=== PATIENT | female | born 1950 | race Caucasian/White ===

== ENCOUNTER 2017-09-14 09:16 | Outpatient (CLI) | payer MEDICARE ==
--- NOTE | 2017-09-14 12:31 | MRI ---
BRAIN MRI WITH AND WITHOUT CONTRAST: History: Dizziness, loss of hearing in the right ear since March. Comparison: None. Technique: Brain and inter auditory canal MRI performed with and without intravenous gadolinium admin istration. Multisequential, multiplanar imaging performed. FINDINGS: No hemorrhage on the axial gradient echo sequence. Calvarium has a normal marrow signal intensity. Midline brain parenchymal structures are unremarkable . Central arterial flow voids are maintained. Absent restricted diffusion. White matter hyperintensity due to small vessel ischemic changes are noted. No pathologic enhancement of the brain parenchyma. There is partial opacification of the right mastoid air cells. There is right greater than left maxil pj sinus disease as well as mucosal thickening in the visualized paranasal sinuses, predominately i n both sphenoid sinuses. There is symmetric signal intensity in the left and right internal auditory canal. There is symmetric signal intensity in the bilateral inner ear structures. There is symmetric signal intensity in the 7 th/8th as well as 5th cranial nerve complexes. There is no abnormal enhancement. IMPRESSION: 1. Sinus disease as above. 2. Partial opacification right mastoid air cells. 3. No abnormal signal intensity in the 7th/8th cranial nerve complexes. POS: [facility]
== END 2017-09-14 09:17 | disposition home or self-care (01) ==
LOC: SCSMRI 09:16
PROVIDERS: ATTEND Specialist
DX: R42 Dizziness and giddiness (principal); J32.9 Chronic sinusitis, unspecified; H74.8X1 Other specified disorders of right middle ear and mastoid
CPT/HCPCS: 70553

== ENCOUNTER 2017-09-19 09:36 | Outpatient (CLI) | payer MEDICARE | END 2017-09-19 09:37 | disposition home or self-care (01) | LOC: CTENTCT 09:36 | PROVIDERS: ATTEND Specialist | DX: J34.2 Deviated nasal septum (principal) | CPT/HCPCS: 70486 ==

== ENCOUNTER 2022-09-26 16:49 | Inpatient (IN) | payer MEDICARE ==
[2022-09-26 17:37] LABS: #Lymphocytes 0.9 thou/uL (1.20-3.40); #Monocytes 0.5 thou/uL (0.11-0.59); #Neutrophils 12.1 thou/uL (1.40-6.50); %Basophils 0.3 % (0.0-1.0); %Eosinophils 0.2 % (0.0-10.0); %Lymphocytes 6.6 % (21.0-51.0); %Monocytes 3.9 % (0.0-10.0); Mean Corpuscular HGB CONC 32.8 g/dL (32.0-36.0); Mean Corpuscular Hemoglobin 35.7 pg (27.0-31.0); Mean Platelet Volume 8.2 fL (7.4-10.4); Platelet Count 207 10x3/uL (130-400); RBC Distribution Width 17.5 % (11.5-14.5); Red Blood Cell (RBC) Count 3.64 mill/uL (4.20-5.40); White Blood Cell (WBC) Count 13.5 10x3/uL (4.8-10.8)
[2022-09-26] MEDS ORDERED: Morphine 4 MG/ML VIAL ONE ×2 (17:43→17:58)
[2022-09-26 17:53] LABS: MDiff Complete? YES; Macrocytosis SLIGHT = 6-15 cells (100X) (0-5/hpf); Ovalocytes SLIGHT = 2-5 cells (100X) (0-1/hpf); Platelet Morphology Comment Appears Adequate; Polychromasia SLIGHT = 2-3 cells (100X) (0-2/hpf)
[2022-09-26 17:57] LABS: ALT (SGPT) 19 U/L (8-55); AST (SGOT) 41 U/L (5-34); Albumin 3.8 g/dL (3.4-4.8); Alkaline Phosphatase 85 U/L (40-110); Anion Gap 12 mmol/L (10-20); BUN (Urea Nitrogen) 12 mg/dL (9.8-20.1); Bilirubin, Total 1.6 mg/dL (0.2-1.2); Calc. Creatinine Clearance 0 mL/min (70-130); Carbon Dioxide 28 mmol/L (23-31); Chloride 104 mmol/L (98-107); Estimated GFR 92; Globulin 2.5 g/dL (2.4-3.5); Glucose 181 mg/dL (83-110); Potassium 4.5 mmol/L (3.5-5.1); Protein, Total 6.3 g/dL (5.8-8.1); Sodium 139 mmol/L (136-145)
[2022-09-26] MEDS ORDERED: Ondansetron PF 4 MG/2 ML Vial ONE (17:58)
[2022-09-26 18:37] LABS: Bilirubin 1+ (Negative); Blood, Urine 2+ (Negative); Clarity Turbid (Clear); Glucose, Urine (Dipstick) 30 mg/dL (Negative); Ketone, Urine 10 mg/dL (Negative); Leukocyte 500 Leu/uL (Negative); Nitrite 2+ (Negative); Protein, Urine (Dipstick) 50 mg/dL (Neg-Trace); Specific Gravity, Urine 1.027 (1.002-1.036); pH, Urine 5.5 (5.0-9.0)
[2022-09-26 18:41] LABS: PTT 28.5 sec (22.9-36.1); Prothrombin Time 13.1 sec (12.0-14.7)
[2022-09-26 18:44] LABS: Bacteria/HPF 4+ HPF (None Seen); Calcium Oxalate Crystals 1+ HPF (None Seen); Squamous Epithelial 0-3 HPF (0-3)
[2022-09-26] MEDS ORDERED: cefTRIAXone\\ROCEPHIN 1 GM VIAL ONE (19:14)
[2022-09-26] MEDS ORDERED: Ondansetron PF 4 MG/2 ML Vial IVP PRN ×2 (20:39→20:46)
[2022-09-26] MEDS ORDERED: Dextrose 50% Abboject 50 ML SYRINGE SLOW IVP PRN (20:39)
[2022-09-26] MEDS ORDERED: Dextrose 5% in Water 1,000 ML IV PRN (20:39)
[2022-09-26] MEDS ORDERED: Ondansetron ODT 4 MG TAB PO PRN (20:39)
[2022-09-26] MEDS ORDERED: Insulin Regular 300 UNITS/3 ML VIAL SC PRN (20:39)
[2022-09-26] MEDS ORDERED: Morphine 4 MG/ML VIAL SLOW IVP PRN ×2 (20:39→20:48)
[2022-09-26] MEDS ORDERED: hydrALAZINE 20 MG/ML VIAL SLOW IVP PRN (20:39)
[2022-09-26] MEDS ORDERED: Famotidine 20 MG TAB PO SCH ×2 (21:00)
[2022-09-26 21:16] LABS: Magnesium 1.9 mg/dL (1.6-2.6); Phosphorus 3.1 mg/dL (2.3-4.7)
[2022-09-26 21:21] VITALS: BMI 39.5
[2022-09-26] MEDS: Gabapentin 100 MG CAP PO SCH (21:53)
[2022-09-26] MEDS: traMADol HCl 50 MG TAB PO SCH (21:54)
[2022-09-26] MEDS: Acetaminophen 325 MG TAB PO SCH (21:54)
[2022-09-26] MEDS: Senokot S 8.6-50 MG TAB PO SCH (21:54)
[2022-09-26] MEDS: Cyclobenzaprine 10 MG TAB PO PRN (21:55)
[2022-09-26] MEDS ORDERED: Cetirizine HCl 10 MG TAB PO PRN (22:48)
[2022-09-26] MEDS ORDERED: Sodium Chloride 0.9% 1,000 ML IV SCH (23:55)
[2022-09-27] MEDS: Ketorolac Tromethamine 30 MG/ML VIAL IVP SCH ×4 (00:50→18:28)
[2022-09-27 03:11] LABS: SARS-CoV-2 NAA Rapid Test Not Detected (NotDetected)
[2022-09-27] MEDS: Acetaminophen 325 MG TAB PO SCH (03:43)
[2022-09-27] MEDS: traMADol HCl 50 MG TAB PO SCH (03:43)
[2022-09-27] MEDS: Gabapentin 100 MG CAP PO SCH (05:33)
[2022-09-27] MEDS ORDERED: Acetaminophen/Codeine 30-300mg Tablet PO PRN (06:27)
[2022-09-27] MEDS ORDERED: Metoprolol Tartrate 25 MG TAB PO SCH (06:30)
[2022-09-27 06:44] LABS: #Basophils 0.1 thou/uL (0.0-0.2); #Lymphocytes 0.8 thou/uL (1.20-3.40); #Monocytes 0.2 thou/uL (0.11-0.59); #Neutrophils 10.4 thou/uL (1.40-6.50); %Basophils 0.6 % (0.0-1.0); %Eosinophils 0.2 % (0.0-10.0); %Lymphocytes 6.9 % (21.0-51.0); %Monocytes 1.7 % (0.0-10.0); %Neutrophils 90.6 % (42.0-75.0); Hemoglobin 12.4 g/dL (12.0-16.0); Mean Corpuscular HGB CONC 32.5 g/dL (32.0-36.0); Mean Corpuscular Hemoglobin 36.1 pg (27.0-31.0); Mean Platelet Volume 8.2 fL (7.4-10.4); Platelet Count 222 10x3/uL (130-400); RBC Distribution Width 17.5 % (11.5-14.5); Red Blood Cell (RBC) Count 3.44 mill/uL (4.20-5.40); White Blood Cell (WBC) Count 11.5 10x3/uL (4.8-10.8)
[2022-09-27 07:19] LABS: Anion Gap 12 mmol/L (10-20); BUN (Urea Nitrogen) 16 mg/dL (9.8-20.1); Calc. Creatinine Clearance 107 mL/min (70-130); Calcium 8.7 mg/dL (7.8-10.44); Carbon Dioxide 26 mmol/L (23-31); Chloride 105 mmol/L (98-107); Estimated GFR 75; Glucose 173 mg/dL (83-110); Magnesium 1.8 mg/dL (1.6-2.6); Potassium 3.9 mmol/L (3.5-5.1); Sodium 139 mmol/L (136-145)
[2022-09-27] MEDS ORDERED: Morphine 4 MG/ML VIAL SLOW IVP PRN (07:49)
[2022-09-27] MEDS ORDERED: traMADol HCl 50 MG TAB PO PRN (07:49)
[2022-09-27] MEDS ORDERED: Magnesium 2 GM/50 ML(in water) 2 GM in Premix Bag 1 BAG IVPB SCH (08:00)
[2022-09-27] MEDS ORDERED: CEFAZOLIN 2 GM in Sodium Chloride 0.9% 100 ML IVPB SCH (08:30)
[2022-09-27] MEDS: Senokot S 8.6-50 MG TAB PO SCH ×2 (08:51→22:23)
[2022-09-27] MEDS: Polyethylene Glycol 3350 17 GM Packet PO SCH (08:51)
[2022-09-27] MEDS: Sertraline 100 MG TAB PO SCH (08:51)
[2022-09-27] MEDS ORDERED: FLU VACC QS2022-23(65YR UP)/PF 240 MCG/0.7 ML SYRINGE IM ONE (09:00)
[2022-09-27] MEDS: Acetaminophen 500 MG TAB PO SCH ×3 (11:22→22:23)
[2022-09-27] MEDS: Potassium Chloride 20 MEQ in Premix Bag 1 BAG IVPB SCH ×2 (12:13→16:17)
[2022-09-27 12:34] LABS: Troponin I 0.141 ng/mL (< 0.028)
[2022-09-27] MEDS: cefTRIAXone\\ROCEPHIN 1 GM in Sodium Chloride 0.9% 100 ML IVPB SCH (18:28)
[2022-09-27 18:44] LABS: Troponin I 0.206 ng/mL (< 0.028)
[2022-09-27] MEDS ORDERED: levETIRAcetam in NS 1,000 MG in Premix Bag 1 BAG IVPB SCH (19:45)
[2022-09-27] MEDS ORDERED: Sodium Bicarb 50 MEQ/50 ML VIAL IVP SCH (19:45)
[2022-09-27] MEDS ORDERED: Sodium Chloride 0.9% 1,000 ML IV SCH (20:00)
[2022-09-27] MEDS: Metoprolol Tartrate 25 MG TAB PO SCH (22:23)
[2022-09-28] MEDS: Ketorolac Tromethamine 30 MG/ML VIAL IVP SCH ×5 (00:58→23:51)
[2022-09-28 01:50] LABS: Troponin I 0.209 ng/mL (< 0.028)
[2022-09-28 05:09] LABS: #Eosinphils 0.2 thou/uL (0.0-0.7); #Lymphocytes 1.4 thou/uL (1.20-3.40); #Monocytes 0.4 thou/uL (0.11-0.59); #Neutrophils 10.2 thou/uL (1.40-6.50); %Basophils 0.2 % (0.0-1.0); %Eosinophils 1.4 % (0.0-10.0); %Lymphocytes 11.7 % (21.0-51.0); %Monocytes 3.3 % (0.0-10.0); %Neutrophils 83.4 % (42.0-75.0); Hemoglobin 9.7 g/dL (12.0-16.0); Mean Corpuscular HGB CONC 32.1 g/dL (32.0-36.0); Mean Platelet Volume 8.6 fL (7.4-10.4); Platelet Count 175 10x3/uL (130-400); RBC Distribution Width 17.5 % (11.5-14.5); White Blood Cell (WBC) Count 12.2 10x3/uL (4.8-10.8)
[2022-09-28] MEDS: Acetaminophen 500 MG TAB PO SCH ×4 (06:02→22:59)
[2022-09-28 06:03] LABS: Anion Gap 10 mmol/L (10-20); BUN (Urea Nitrogen) 23 mg/dL (9.8-20.1); Calc. Creatinine Clearance 94 mL/min (70-130); Calcium 8.4 mg/dL (7.8-10.44); Carbon Dioxide 25 mmol/L (23-31); Chloride 104 mmol/L (98-107); Estimated GFR 64; Glucose 132 mg/dL (83-110); Magnesium 2.4 mg/dL (1.6-2.6); Phosphorus 3.6 mg/dL (2.3-4.7); Potassium 4.9 mmol/L (3.5-5.1); Sodium 134 mmol/L (136-145)
[2022-09-28] MEDS ORDERED: levETIRAcetam in NS 500 MG in Premix Bag 1 BAG IVPB SCH (09:00)
[2022-09-28] MEDS: Metoprolol Tartrate 25 MG TAB PO SCH ×2 (09:43→21:04)
[2022-09-28] MEDS: Polyethylene Glycol 3350 17 GM Packet PO SCH ×2 (09:43→09:50)
[2022-09-28] MEDS: Senokot S 8.6-50 MG TAB PO SCH ×2 (09:43→21:04)
[2022-09-28] MEDS: Sertraline 100 MG TAB PO SCH (09:44)
[2022-09-28] MEDS ORDERED: Rocuronium Bromide 10 MG/ML (10ML VIAL) ONE (12:44)
[2022-09-28] MEDS ORDERED: Dexamethasone 20 MG/5 ML VIAL ONE (12:44)
[2022-09-28] MEDS ORDERED: Ropivacaine 0.5% HCl/PF (150 MG/30 ML VIAL) ONE ×2 (12:44→12:54)
[2022-09-28] MEDS ORDERED: NEOSTIGMINE 3 MG/3 ML SYR 3 MG/3 ML SYRINGE ONE (12:44)
[2022-09-28] MEDS ORDERED: Phenylephrine 10 MG/ML VIAL ONE (12:44)
[2022-09-28] MEDS ORDERED: PROPOFOL 200 MG/20 ML VIAL ONE (12:44)
[2022-09-28] MEDS ORDERED: CEFAZOLIN 2 GM VIAL ONE (12:53)
[2022-09-28] MEDS ORDERED: Sodium Chloride 0.9% 100 ML ONE (12:53)
[2022-09-28] MEDS ORDERED: Midazolam HCl 2 mg/2 ml Vial ONE (12:54)
[2022-09-28] MEDS ORDERED: FENTANYL 50 MCG/ML 1 ML VIAL ONE (12:54)
[2022-09-28] MEDS ORDERED: fentaNYL PF 100 MCG/2 ML SYRINGE ONE (13:19)
[2022-09-28] MEDS ORDERED: Lidocaine 2% 6 ML SYR ONE (13:19)
[2022-09-28] MEDS ORDERED: Promethazine HCl 25 MG/ML VIAL IM PRN (13:58)
[2022-09-28] MEDS ORDERED: Promethazine HCl 25 MG/ML VIAL IVPB PRN (13:58)
[2022-09-28] MEDS ORDERED: Ondansetron HCl/PF 4 MG/2 ML Vial IVP PRN (13:58)
[2022-09-28] MEDS ORDERED: Sodium Chloride 0.9% 500 ML IV SCH (15:30)
[2022-09-28] MEDS ORDERED: hydrALAZINE 20 MG/ML VIAL ONE (16:37)
[2022-09-28] MEDS ORDERED: Promethazine HCl 25 MG/ML VIAL ONE (17:08)
[2022-09-28] MEDS ORDERED: Ketorolac Tromethamine 30 MG/ML VIAL ONE (17:18)
[2022-09-28] MEDS: Ferrous Sulfate 325 MG TAB PO SCH (18:10)
[2022-09-28] MEDS: cefTRIAXone\\ROCEPHIN 1 GM in Sodium Chloride 0.9% 100 ML IVPB SCH (20:59)
[2022-09-28] MEDS: Ascorbic Acid 500 mg Chewable Tablet PO SCH (21:04)
[2022-09-28] MEDS: CEFAZOLIN 2 GM in Sodium Chloride 0.9% 100 ML IVPB SCH (21:52)
[2022-09-28] MEDS: Sodium Chloride 0.9% 1,000 ML IV SCH (23:49)
[2022-09-29] MEDS: Acetaminophen 500 MG TAB PO SCH ×2 (04:56→09:20)
[2022-09-29 05:09] LABS: #Lymphocytes 0.7 thou/uL (1.20-3.40); #Monocytes 0.3 thou/uL (0.11-0.59); #Neutrophils 9.2 thou/uL (1.40-6.50); %Eosinophils 0.2 % (0.0-10.0); %Lymphocytes 6.7 % (21.0-51.0); %Neutrophils 90.2 % (42.0-75.0); Hemoglobin 8.3 g/dL (12.0-16.0); Mean Corpuscular HGB CONC 32.5 g/dL (32.0-36.0); Mean Corpuscular Hemoglobin 36.3 pg (27.0-31.0); Platelet Count 185 10x3/uL (130-400); RBC Distribution Width 17.8 % (11.5-14.5); Red Blood Cell (RBC) Count 2.29 mill/uL (4.20-5.40); White Blood Cell (WBC) Count 10.2 10x3/uL (4.8-10.8)
[2022-09-29 05:29] LABS: Anion Gap 11 mmol/L (10-20); BUN (Urea Nitrogen) 19 mg/dL (9.8-20.1); Calc. Creatinine Clearance 126 mL/min (70-130); Calcium 8.3 mg/dL (7.8-10.44); Carbon Dioxide 25 mmol/L (23-31); Chloride 108 mmol/L (98-107); Estimated GFR 91; Glucose 146 mg/dL (83-110); Magnesium 2.2 mg/dL (1.6-2.6); Phosphorus 2.9 mg/dL (2.3-4.7); Sodium 139 mmol/L (136-145)
[2022-09-29] MEDS: CEFAZOLIN 2 GM in Sodium Chloride 0.9% 100 ML IVPB SCH ×2 (05:41→13:53)
[2022-09-29] MEDS: Ketorolac Tromethamine 30 MG/ML VIAL IVP SCH ×3 (05:41→18:37)
[2022-09-29] MEDS: Polyethylene Glycol 3350 17 GM Packet PO SCH (09:20)
[2022-09-29] MEDS: Ferrous Sulfate 325 MG TAB PO SCH ×2 (09:21→16:40)
[2022-09-29] MEDS: predniSONE 20 MG TAB PO SCH (09:21)
[2022-09-29] MEDS: Senokot S 8.6-50 MG TAB PO SCH ×2 (09:21→21:34)
[2022-09-29] MEDS: Metoprolol Tartrate 25 MG TAB PO SCH ×2 (09:21→21:33)
[2022-09-29] MEDS: Ascorbic Acid 500 mg Chewable Tablet PO SCH ×2 (09:22→21:33)
[2022-09-29] MEDS: Sodium Chloride 0.9% 1,000 ML IV SCH ×2 (09:22→18:38)
[2022-09-29] MEDS: Sertraline 100 MG TAB PO SCH (09:22)
[2022-09-29] MEDS: Acetaminophen/Codeine 30-300mg Tablet PO SCH ×3 (11:10→21:33)
[2022-09-29] MEDS ORDERED: Loratadine 10 MG TAB PO PRN (11:45)
[2022-09-29] MEDS: cloNIDine 0.1 MG TAB PO SCH ×2 (12:30→16:38)
[2022-09-29] MEDS ORDERED: Gabapentin 100 MG CAP PO SCH (15:00)
[2022-09-29] MEDS: Insulin Regular 300 UNITS/3 ML VIAL SC PRN (16:45)
[2022-09-29] MEDS: Dronedarone HCl 400 MG TAB PO SCH (18:37)
[2022-09-29] MEDS ORDERED: Amlodipine 5 MG TAB PO SCH (19:00)
[2022-09-29] MEDS: Pregabalin 50 MG CAP PO SCH (21:33)
[2022-09-30] MEDS: Ketorolac Tromethamine 30 MG/ML VIAL IVP SCH ×3 (01:10→12:28)
[2022-09-30] MEDS: Sodium Chloride 0.9% 1,000 ML IV SCH ×2 (01:11→12:36)
[2022-09-30 05:09] LABS: #Eosinphils 0.1 thou/uL (0.0-0.7); #Lymphocytes 1.6 thou/uL (1.20-3.40); #Monocytes 0.4 thou/uL (0.11-0.59); #Neutrophils 6.9 thou/uL (1.40-6.50); %Basophils 0.3 % (0.0-1.0); %Eosinophils 0.6 % (0.0-10.0); %Lymphocytes 18.2 % (21.0-51.0); %Monocytes 4.2 % (0.0-10.0); %Neutrophils 76.8 % (42.0-75.0); Hemoglobin 7.1 g/dL (12.0-16.0); Mean Corpuscular HGB CONC 33.2 g/dL (32.0-36.0); Mean Corpuscular Hemoglobin 36.8 pg (27.0-31.0); Mean Platelet Volume 7.9 fL (7.4-10.4); Platelet Count 186 10x3/uL (130-400); Red Blood Cell (RBC) Count 1.94 mill/uL (4.20-5.40); White Blood Cell (WBC) Count 8.9 10x3/uL (4.8-10.8)
[2022-09-30 05:28] LABS: Troponin I 0.088 ng/mL (< 0.028)
[2022-09-30] MEDS: Acetaminophen/Codeine 30-300mg Tablet PO SCH ×4 (05:50→21:47)
[2022-09-30 06:02] LABS: Anion Gap 6 mmol/L (10-20); BUN (Urea Nitrogen) 20 mg/dL (9.8-20.1); Calc. Creatinine Clearance 126 mL/min (70-130); Calcium 8.2 mg/dL (7.8-10.44); Carbon Dioxide 28 mmol/L (23-31); Chloride 109 mmol/L (98-107); Estimated GFR 91; Glucose 116 mg/dL (83-110); Magnesium 2.2 mg/dL (1.6-2.6); Phosphorus 2.3 mg/dL (2.3-4.7); Potassium 4.4 mmol/L (3.5-5.1); Sodium 139 mmol/L (136-145)
[2022-09-30] MEDS: Dronedarone HCl 400 MG TAB PO SCH ×3 (12:19→18:20)
[2022-09-30] MEDS: predniSONE 20 MG TAB PO SCH (12:20)
[2022-09-30] MEDS: Sertraline 100 MG TAB PO SCH (12:20)
[2022-09-30] MEDS: Amlodipine 5 MG TAB PO SCH (12:20)
[2022-09-30] MEDS: Ferrous Sulfate 325 MG TAB PO SCH ×2 (12:21→17:45)
[2022-09-30] MEDS: Metoprolol Tartrate 25 MG TAB PO SCH ×2 (12:21→21:46)
[2022-09-30] MEDS: Senokot S 8.6-50 MG TAB PO SCH ×2 (12:22→21:49)
[2022-09-30] MEDS: Polyethylene Glycol 3350 17 GM Packet PO SCH (12:24)
[2022-09-30] MEDS: Ascorbic Acid 500 mg Chewable Tablet PO SCH ×2 (12:24→21:46)
[2022-09-30] MEDS: Pregabalin 50 MG CAP PO SCH ×2 (12:26→21:47)
[2022-09-30] MEDS: Nitrofurantoin Monohyd/M-Cryst 100 MG CAP PO SCH ×2 (12:26→21:47)
[2022-09-30] MEDS: Enoxaparin Sodium 40 MG/0.4 ML SYRINGE SC SCH ×2 (12:52→22:10)
[2022-09-30] MEDS: Famotidine 20 MG TAB PO SCH (21:47)
[2022-10-01 05:09] LABS: #Eosinphils 0.1 thou/uL (0.0-0.7); #Lymphocytes 1.9 thou/uL (1.20-3.40); #Monocytes 0.5 thou/uL (0.11-0.59); #Neutrophils 5.1 thou/uL (1.40-6.50); %Basophils 0.2 % (0.0-1.0); %Eosinophils 1.9 % (0.0-10.0); %Lymphocytes 25.1 % (21.0-51.0); %Monocytes 6.3 % (0.0-10.0); %Neutrophils 66.5 % (42.0-75.0); Hemoglobin 7.7 g/dL (12.0-16.0); Mean Corpuscular HGB CONC 32.5 g/dL (32.0-36.0); Mean Corpuscular Hemoglobin 35.8 pg (27.0-31.0); Mean Platelet Volume 7.6 fL (7.4-10.4); Platelet Count 221 10x3/uL (130-400); RBC Distribution Width 18.4 % (11.5-14.5); Red Blood Cell (RBC) Count 2.15 mill/uL (4.20-5.40); White Blood Cell (WBC) Count 7.7 10x3/uL (4.8-10.8)
[2022-10-01 05:39] LABS: Anion Gap 10 mmol/L (10-20); BUN (Urea Nitrogen) 13 mg/dL (9.8-20.1); Calc. Creatinine Clearance 140 mL/min (70-130); Calcium 8.7 mg/dL (7.8-10.44); Carbon Dioxide 27 mmol/L (23-31); Chloride 107 mmol/L (98-107); Estimated GFR 94; Glucose 93 mg/dL (83-110); Magnesium 1.9 mg/dL (1.6-2.6); Phosphorus 2.9 mg/dL (2.3-4.7); Potassium 4.5 mmol/L (3.5-5.1); Sodium 139 mmol/L (136-145)
[2022-10-01] MEDS: Acetaminophen/Codeine 30-300mg Tablet PO SCH ×4 (05:45→22:52)
[2022-10-01] MEDS: Ferrous Sulfate 325 MG TAB PO SCH ×2 (09:30→17:30)
[2022-10-01] MEDS: Dronedarone HCl 400 MG TAB PO SCH ×2 (09:30→17:30)
[2022-10-01] MEDS: predniSONE 20 MG TAB PO SCH (09:31)
[2022-10-01] MEDS: Amlodipine 5 MG TAB PO SCH (09:32)
[2022-10-01] MEDS: Ascorbic Acid 500 mg Chewable Tablet PO SCH ×2 (09:32→21:40)
[2022-10-01] MEDS: Famotidine 20 MG TAB PO SCH ×2 (09:33→21:40)
[2022-10-01] MEDS: Lisinopril 5 MG TAB PO SCH (09:34)
[2022-10-01] MEDS: Pregabalin 50 MG CAP PO SCH ×2 (09:35→21:40)
[2022-10-01] MEDS: Metoprolol Tartrate 25 MG TAB PO SCH ×2 (09:35→21:39)
[2022-10-01] MEDS: Nitrofurantoin Monohyd/M-Cryst 100 MG CAP PO SCH ×2 (09:35→21:39)
[2022-10-01] MEDS: Sertraline 100 MG TAB PO SCH (09:39)
[2022-10-01] MEDS: Senokot S 8.6-50 MG TAB PO SCH ×2 (09:41→21:39)
[2022-10-01] MEDS: Polyethylene Glycol 3350 17 GM Packet PO SCH (09:41)
[2022-10-01] MEDS: Insulin Regular 300 UNITS/3 ML VIAL SC PRN (17:34)
[2022-10-01] MEDS: Enoxaparin Sodium 40 MG/0.4 ML SYRINGE SC SCH (21:37)
[2022-10-01] MEDS: Cyclobenzaprine 10 MG TAB PO PRN (21:46)
[2022-10-02] MEDS: Acetaminophen/Codeine 30-300mg Tablet PO SCH ×3 (04:47→16:26)
[2022-10-02] MEDS: Ascorbic Acid 500 mg Chewable Tablet PO SCH ×2 (09:31→21:51)
[2022-10-02] MEDS: Ferrous Sulfate 325 MG TAB PO SCH ×2 (09:31→17:30)
[2022-10-02] MEDS: Dronedarone HCl 400 MG TAB PO SCH ×2 (09:31→17:29)
[2022-10-02] MEDS: predniSONE 20 MG TAB PO SCH (09:32)
[2022-10-02] MEDS: Metoprolol Tartrate 25 MG TAB PO SCH ×2 (09:32→21:52)
[2022-10-02] MEDS: Nitrofurantoin Monohyd/M-Cryst 100 MG CAP PO SCH ×2 (09:32→21:53)
[2022-10-02] MEDS: Lisinopril 5 MG TAB PO SCH (09:32)
[2022-10-02] MEDS: Sertraline 100 MG TAB PO SCH (09:33)
[2022-10-02] MEDS: Pregabalin 50 MG CAP PO SCH ×2 (09:33→21:53)
[2022-10-02] MEDS: Famotidine 20 MG TAB PO SCH ×2 (09:33→21:51)
[2022-10-02] MEDS: Amlodipine 5 MG TAB PO SCH (09:33)
[2022-10-02] MEDS: Polyethylene Glycol 3350 17 GM Packet PO SCH (09:49)
[2022-10-02] MEDS: Senokot S 8.6-50 MG TAB PO SCH ×2 (09:49→21:52)
[2022-10-02] MEDS: Insulin Regular 300 UNITS/3 ML VIAL SC PRN (17:30)
[2022-10-02] MEDS: Enoxaparin Sodium 30 MG/0.3 ML SYRINGE SC SCH (21:52)
[2022-10-03] MEDS: Acetaminophen/Codeine 30-300mg Tablet PO SCH ×5 (05:17→21:35)
[2022-10-03] MEDS: Enoxaparin Sodium 30 MG/0.3 ML SYRINGE SC SCH ×2 (09:33→21:35)
[2022-10-03] MEDS: Dronedarone HCl 400 MG TAB PO SCH ×2 (09:34→17:54)
[2022-10-03] MEDS: Ascorbic Acid 500 mg Chewable Tablet PO SCH (09:34)
[2022-10-03] MEDS: Nitrofurantoin Monohyd/M-Cryst 100 MG CAP PO SCH ×2 (09:34→21:41)
[2022-10-03] MEDS: Ferrous Sulfate 325 MG TAB PO SCH (09:34)
[2022-10-03] MEDS: Metoprolol Tartrate 50 MG TAB PO SCH ×2 (09:34→21:37)
[2022-10-03] MEDS: Famotidine 20 MG TAB PO SCH ×2 (09:34→21:35)
[2022-10-03] MEDS: predniSONE 20 MG TAB PO SCH (09:34)
[2022-10-03] MEDS: Amlodipine 5 MG TAB PO SCH (09:35)
[2022-10-03] MEDS: Sertraline 100 MG TAB PO SCH (09:35)
[2022-10-03] MEDS: Lisinopril 5 MG TAB PO SCH (09:35)
[2022-10-03] MEDS: Pregabalin 50 MG CAP PO SCH ×2 (09:35→21:37)
[2022-10-03] MEDS: Polyethylene Glycol 3350 17 GM Packet PO SCH (10:01)
[2022-10-03] MEDS: Senokot S 8.6-50 MG TAB PO SCH ×2 (10:01→21:42)
[2022-10-03] MEDS: Insulin Regular 300 UNITS/3 ML VIAL SC PRN (17:54)
[2022-10-04] MEDS: Acetaminophen/Codeine 30-300mg Tablet PO SCH ×2 (05:04→10:46)
[2022-10-04 07:04] LABS: #Eosinphils 0.1 thou/uL (0.0-0.7); #Lymphocytes 1.7 thou/uL (1.20-3.40); #Monocytes 0.6 thou/uL (0.11-0.59); #Neutrophils 4.3 thou/uL (1.40-6.50); %Basophils 0.2 % (0.0-1.0); %Eosinophils 1.9 % (0.0-10.0); %Lymphocytes 25.7 % (21.0-51.0); %Monocytes 8.8 % (0.0-10.0); %Neutrophils 63.5 % (42.0-75.0); Hemoglobin 9.5 g/dL (12.0-16.0); Mean Corpuscular HGB CONC 31.7 g/dL (32.0-36.0); Mean Corpuscular Hemoglobin 35.3 pg (27.0-31.0); Mean Platelet Volume 7.4 fL (7.4-10.4); Platelet Count 294 10x3/uL (130-400); RBC Distribution Width 17.9 % (11.5-14.5); Red Blood Cell (RBC) Count 2.68 mill/uL (4.20-5.40); White Blood Cell (WBC) Count 6.8 10x3/uL (4.8-10.8)
[2022-10-04] MEDS: Polyethylene Glycol 3350 17 GM Packet PO SCH (10:32)
[2022-10-04] MEDS: Dronedarone HCl 400 MG TAB PO SCH (10:33)
[2022-10-04] MEDS: Nitrofurantoin Monohyd/M-Cryst 100 MG CAP PO SCH (10:34)
[2022-10-04] MEDS: Metoprolol Tartrate 50 MG TAB PO SCH (10:34)
[2022-10-04] MEDS: Sertraline 100 MG TAB PO SCH (10:34)
[2022-10-04] MEDS: Pregabalin 50 MG CAP PO SCH (10:34)
[2022-10-04] MEDS: Senokot S 8.6-50 MG TAB PO SCH (10:35)
[2022-10-04] MEDS: Lisinopril 5 MG TAB PO SCH (10:35)
[2022-10-04] MEDS: Amlodipine 5 MG TAB PO SCH (10:35)
[2022-10-04] MEDS: predniSONE 20 MG TAB PO SCH (10:35)
[2022-10-04] MEDS: Enoxaparin Sodium 30 MG/0.3 ML SYRINGE SC SCH (10:37)
[2022-10-04 11:49] VITALS: BP 134/85; TEMP 98.8
== END 2022-10-04 14:15 | DRG 480 ==
LOC: ERS 16:49 → SURG B 19:52 → 2NO 09-28 01:45 → SJJU 10-01 17:57
PROVIDERS: ADMIT Surgery; ATTEND Surgery
PROC: 0QSB04Z Reposition Right Lower Femur with Internal Fixation Device, Open Approach (ICD-10-PCS; principal; 2022-09-28)
PROC: 0QSJ04Z Reposition Right Fibula with Internal Fixation Device, Open Approach (ICD-10-PCS; 2022-09-28)
PROC: 0QSG04Z Reposition Right Tibia with Internal Fixation Device, Open Approach (ICD-10-PCS; 2022-09-28)
DX: M97.11XA Periprosthetic fracture around internal prosthetic right knee joint, initial encounter (principal); I21.A1 Myocardial infarction type 2; D62 Acute posthemorrhagic anemia; N39.0 Urinary tract infection, site not specified; S82.851A Displaced trimalleolar fracture of right lower leg, initial encounter for closed fracture; I10 Essential (primary) hypertension; K21.9 Gastro-esophageal reflux disease without esophagitis; E11.9 Type 2 diabetes mellitus without complications; F32.A Depression, unspecified; M19.90 Unspecified osteoarthritis, unspecified site; Z96.651 Presence of right artificial knee joint; S82.841A Displaced bimalleolar fracture of right lower leg, initial encounter for closed fracture; G89.11 Acute pain due to trauma; E78.5 Hyperlipidemia, unspecified; N20.0 Calculus of kidney; Z91.048 Other nonmedicinal substance allergy status; Z90.710 Acquired absence of both cervix and uterus; Z98.84 Bariatric surgery status; Z90.49 Acquired absence of other specified parts of digestive tract; B96.20 Unspecified Escherichia coli [E. coli] as the cause of diseases classified elsewhere; I48.0 Paroxysmal atrial fibrillation; Z20.822 Contact with and (suspected) exposure to COVID-19
CPT/HCPCS: 29515; 36415; 36416; 70450; 71045; 80048; 80053; 81001; 81003; 81015; 83735; 83880; 84100; 84484; 85025; 85610; 85730; 87077; 87086; 87186; 87811; 93005; 93010; 93306; 96365; 96375; C1713; G0390; J0360; J0696; J1100; J1650; J1815; J1885; J2250; J2270; J2370; J2405; J2550; J2704; J2795; J3010; J3475; J3480; J3490; J7030; J7050; J7512; J7643; Q0162; U0002

== ENCOUNTER 2024-01-04 15:01 | Outpatient (CLI) | payer MEDICARE ==
[~2024-01-04 15:01] MED LIST: Magnevist 469MG/ML 20 ML VIAL ONE
== END 2024-01-04 15:02 | disposition home or self-care (01) ==
LOC: BICMRI 15:01
PROVIDERS: ATTEND Nurse Practitioner Family
DX: R42 Dizziness and giddiness (principal); R90.82 White matter disease, unspecified; R60.0 Localized edema
CPT/HCPCS: 70553; 82565